=== PATIENT | female | born 1975 | race Caucasian/White ===

== ENCOUNTER 2020-10-15 07:30 | Emergency (ER) | payer BC, SELFPAY ==
--- NOTE | ~2020-10-15 | XR_ITS ---
EXAMINATION: XR chest 2V DATE: 10/15/2020 08:01 INDICATION: Chest pain TECHNIQUE: PA and lateral views of the chest are obtained. COMPARISON: None available FINDINGS: The lungs are free of acute opacities. There is no pleural effusion or pneumothorax. The ca rdiomediastinal silhouette is normal. The visualized bones and soft tissues are unremarkable. IMPRESSION: 1. No acute cardiopulmonary abnormality. Reviewed, dictated and finalized at location B.
--- NOTE | ~2020-10-15 | US_ITS ---
EXAMINATION: US right upper quadrant DATE: 10/15/2020 08:18 INDICATION: Epigastric abdominal pain TECHNIQUE: Multiple grayscale and Doppler ultrasound images of the abdomen were obtained. COMPARISON: None available FINDINGS: The head, body, and tail of the pancreas are normal. The liver is normal with normal echoge nicity and echotexture. No surface nodularity. Normal hepatopetal flow in the main portal vein. The g allbladder is normal with no abnormal wall thickening, pericholecystic fluid or stones. The normal co mmon bile duct measures 5 mm. There was no sonographic Marcus sign. IMPRESSION: 1. Normal sonographic study of the gallbladder. Reviewed, dictated and finalized at location B.
--- NOTE | ~2020-10-15 | CT_ITS ---
EXAMINATION: CT abdomen pelvis wo con DATE: 10/15/2020 09:25 INDICATION: Abdominal pain. Nausea. TECHNIQUE: Computed tomography (CT) of the abdomen and pelvis was performed without intravenous contr ast. Automated exposure control and iterative reconstruction technique were employed. The dose-length product was 185.65 mGy-cm. COMPARISON: Ultrasound abdomen 10/15/2020 FINDINGS: The visualized portions of the lung bases demonstrate a 3 mm nodule in right lower lobe, li panda benign. No pleural effusion. The heart size is normal. No pericardial effusion. The liver, gallb ladder, spleen, pancreas, adrenal glands, and kidneys are normal. There is no urolithiasis. There is a 7.5 cm mass posterior to the uterus. The appendix is not visualized. There are dilated loops of dis ana m small bowel. There is wall thickening of a dilated loop of small bowel, consistent with inflammat ion. There is edema of the intra-abdominal fat. There is a small volume of ascites. There is mild lum bar spondylosis. IMPRESSION: 1. Dilated loops of distal small bowel with bowel wall thickening, consistent with adynamic ileus tabatha aleksandra small bowel obstruction with inflammation. Consider CT with intravenous contrast. 2. 7.5 cm mass posterior to the uterus, which may be a uterine fibroid, but ovarian mass cannot be ex cluded. Pelvis ultrasound is recommended. Reviewed, dictated and finalized at location A. IMPRESSION: 1. Dilated loops of distal small bowel with bowel wall thickening, consistent w ith adynamic ileus versus small bowel obstruction with inflammation. Consider C T with intravenous contrast. 2. 7.5 cm mass posterior to the uterus, which may be a uterine fibroid, but ova dewayne mass cannot be excluded. Pelvis ultrasound is recommended.
[2020-10-15 07:37] VITALS: BP 116/82; PULSE 79; RESP 14; TEMP 37.7; O2SAT 100
--- NOTE | 2020-10-15 07:44 | ECG_ITS ---
Measurements Intervals [place] Rate: 82 P: 83 FL: 151 QRS: 62 QRSD: 89 T: 49 QT: 370 QTc: 434 Interpretive Statements SINUS RHYTHM WITH SINUS ARRHYTHMIA BORDERLINE ST ABNORMALITY- ANTEROLAT/INF LEADS BORDERLINE ECG Electronically Signed On 10-15-2020 8:41:07 CDT by Tony Esquivel D.O.
[2020-10-15 07:59] LABS: Basophils Percent Auto 0.3 % (0.2-1.2); Eosinophils Percent Auto 0.5 % (0-4.4); Hematocrit 39.6 % (37.0-47.0); Hemoglobin 13.3 g/dL (12.0-15.0); Immature Granulocyte Absolute 0.02 K/mm3 (0.00-0.031); Immature Granulocyte Percent A 0.3 % (0-0.5); Lymphocytes Absolute Auto 1.05 K/mm3 (0.9-3.2); Lymphocytes Percent Auto 17.7 % (18.3-44.2); Mean Corpuscular HGB Conc 33.6 g/dl (32-36); Mean Corpuscular Hemoglobin 30.5 pg (26-34); Mean Corpuscular Volume 90.8 fl (80-100); Mean Platelet Volume 9.3 fl (7.4-10.4); Monocytes Absolute Auto 0.5 K/mm3 (0.1-0.6); Monocytes Percent Auto 8.3 % (2.6-8.5); Neutrophils Absolute Auto 4.3 K/mm3 (1.3-6.7); Neutrophils Percent Auto 72.9 % (45.5-73.1); Platelet Count Result 241 k/mm3 (150-375); Red Blood Count 4.36 M/mm3 (4.2-5.4); Red Cell Distribution Width 12.4 % (11.5-14.5); White Blood Count 5.9 K/mm3 (4.5-10.0)
[2020-10-15 08:13] LABS: Alanine Aminotransferase 12 U/L (4-35); Albumin Level 4.5 g/dL (3.5-5.1); Alkaline Phosphatase 54 U/L (38-126); Anion Gap 9 mmol/L (8-16); Aspartate Amino Transferase 25 U/L (14-36); Bilirubin,Total 0.7 mg/dL (0.2-1.3); Blood Urea Nitrogen 11 mg/dL (7-17); Calcium 9.4 mg/dL (8.4-10.2); Carbon Dioxide 22 mmol/L (22-30); Chloride 106 mmol/L (98-107); Estimated CRCL calculation 55 ml/min; Estimated Glomerular Filt Rate > 60; Glucose 99 mg/dL (65-105); Lipase 58 U/L (23-300); Potassium 4.3 mmol/L (3.4-5.0); Sodium 137 mmol/L (137-145)
[2020-10-15] MEDS: MORPHINE SULFATE (*CRX) 4 MG/ML INJ IV PUSH (08:15)
[2020-10-15] MEDS: ONDANSETRON INJ 4 MG/2 ML VIAL IV PUSH (08:15)
[2020-10-15 08:24] LABS: Troponin I < 0.012 ng/mL (0.000-0.034)
[2020-10-15 08:49] LABS: Add Urine Microscopic? YES; Appearance Urine Cloudy (Clear); Bilirubin Urine Negative (Negative); Blood Urine 3+ (Negative); Color Urine Yellow (Yellow); Glucose Urine UA Negative (Negative); Ketones Urine 1+ mg/dL (Negative); Leukocyte Esterase Ur Negative LEU/UL (Negative); Mucus Urine Rare /lpf; Nitrate Urine Negative (Negative); Protein Urine 2+ mg/dL (Negative); RBC Urine >75 /hpf (0-2); Specific Grav Ur 1.019 (1.001-1.035); Squamous Epithelial Cell Urine Occasional /hpf (Few); Urobilinogen Urine Negative mg/dL (<2.0); WBC Urine 0-3 /hpf
[2020-10-15 09:01] VITALS: BP 110/76; PULSE 73; RESP 16; O2SAT 100
--- NOTE | 2020-10-15 10:49 | ED.GENADULT ---
HPI - General Adult General Chief complaint: Abdominal Pain Stated complaint: chest pain Time Seen by Provider: 10/15/20 07:34 History of Present Illness HPI narrative: Patient is a 45-year-old female who presents to the ER with abdominal discomfort. Located in the epigastrium. Also associated with nausea. No radiation. No fevers or chills or sweats. No diarrhea or vomiting. Has not had similar symptoms before. No association with eating or drinking. Patient reports she is on her menstrual cycle. She has complicated history of endometriosis and has had multiple surgeries for this. She continues to have bowel movements and pass gas. Patient also reports known endometrial mass on right ovary. Related Data Allergies Allergy/AdvReac Type Severity Reaction Status Date / Time No Known Allergies Allergy Verified 10/15/20 07:47 Review of Systems Review of Systems: All systems reviewed & are unremarkable except as noted in HPI and below Constitutional: Constitutional: Denies chills, Denies fever(s) and Denies weakness Cardiovascular: Cardiovascular: Denies chest pain and Denies radiating jaw, neck or arm pain Respiratory: Respiratory: Denies cough Gastrointestinal: Gastrointestinal: Reports abdominal pain, Reports bloating, Denies constipation, Denies diarrhea, Reports nausea and Denies vomiting Genitourinary: Genitourinary: Denies abnormal vaginal bleeding, Denies dysuria and Denies vaginal discharge Comments: Currently menstruating PMFSH Past Medical History Medical History (Updated 10/15/20 @ 10:56 by Mariano Agudelo MD) Endometriosis Surgical History Surgical History (Updated 10/15/20 @ 10:54 by Mariano Agudelo MD) H/O laparoscopy History of left oophorectomy Social History Social History (Updated 10/15/20 @ 10:51 by Mariano Agudelo MD) Smoking status: Never smoker Exam Narrative: Exam Narrative: GENERAL: Well-appearing, well-nourished, and in no acute distress. HEAD: Normocephalic, atraumatic. CHEST: Clear to auscultation. No respiratory distress. HEART: Regular rate and rhythm. Normal peripheral pulses. ABDOMEN: Soft, mild epigastric discomfort without guarding, nondistended, normal active bowel sounds. EXTREMITIES: Normal range of motion. No edema. SKIN: Warm, dry, no rash. NEURO: Alert and oriented x3. PSYCH: Normal mood and affect. Course Course Emergency Course: Patient informed of results. Feels improved with morphine and having no pain. Discussed CT images and discussed potentially reimaging her with contrast to evaluate for ileus versus obstruction. Patient reports that she does have a history of having endometriosis on her bowel that was scraped off. She has no previous history of bowel obstruction and has had normal passage of gas and stool. We discussed reimaging versus a more conservative approach. Patient has opted to be discharged home with clear liquid diet and bowel rest. The area of thickening on CT scan may represent endometriosis that is causing some ileus or partial obstruction. Patient reports she is midcycle. It is possible that this will improve with rest and is also possible if it is related to endometriosis that should improve quickly as well. We discussed return precautions and she is verbalized understanding. She is aware she may end up back here within the next 24 to 48 hours especially if she continues to have pain, cannot keep down food or water, or has any additional concerns. Patient also reports known mass on right ovary that she has been followed for that is related to her endometriosis. Vital Signs Vital signs: Vital Signs Temperature 99.9 F H 10/15/20 07:37 Pulse Rate 79 10/15/20 07:37 Respiratory Rate 14 10/15/20 07:37 Blood Pressure 116/82 10/15/20 07:37 Pulse Oximetry 100 10/15/20 07:37 Temperature 99.9 F H 10/15/20 07:37 Pulse Rate 73 10/15/20 09:01 Respiratory Rate 16 10/15/20 09:01 Blood Pressure 110/76 10/15
[2020-10-15 10:57] VITALS: BP 123/73; PULSE 63; RESP 16; O2SAT 100
[2020-10-15 11:30] VITALS: BP 122/70; PULSE 72; RESP 18; TEMP 36.8; O2SAT 100
== END 2020-10-15 11:30 | disposition home or self-care (01) ==
PROVIDERS: Emergency Provider Emergency Medicine; PCP Family Medicine
DX: R10.13 Epigastric pain (principal); R07.9 Chest pain, unspecified; R11.0 Nausea; N80.9 Endometriosis, unspecified
CPT/HCPCS: 36415; 71046; 74176; 76705; 80053; 81001; 81025; 83690; 84484; 85025; 93005; 96374; 96375; 99284; J2270; J2405

== ENCOUNTER 2022-04-02 01:58 | Day surgery (SDC) | payer BC, SELFPAY ==
[2022-03-24 10:42] VITALS: BMI 20.8
--- NOTE | 2022-04-01 20:20 | PM.HPGS ---
History of Present Illness History of Present Illness Consent: Risks, benefits, and alternatives have been discussed and questions answered. Patient agrees to proceed with procedure. Chief complaint: neoplasm screening Narrative: Chinyere Hardwick is a 47 year old female Referred for colon cancer screening. Review of Systems Review of Systems: All systems reviewed & are unremarkable except as noted in HPI and below PMFSH Past Medical History Medical History Endometriosis Surgical History Surgical History H/O laparoscopy History of left oophorectomy Social History Social History Smoking status: Never smoker Substance use type: does not use Living arrangements: with family Spiritual care concerns: No Meds Home Medications and Allergies Home Medications Medication Instructions Recorded Confirmed Type conjugated estrogens 1.25 mg 1.25 mg PO DAILY 03/24/22 03/24/22 History tablet (Premarin) trazodone 100 mg tablet 1,000 mg PO PRN PRN Sleep 03/24/22 03/24/22 History Allergies Allergy/AdvReac Type Severity Reaction Status Date / Time No Known Allergies Allergy Verified 04/02/22 08:10 Exam Const: General: alert Orientation/consciousness: patient oriented x3 Resp: Auscultation: clear to auscultation bilaterally Cardio: Rhythm: regular rhythm GI: GI Palp: Yes Soft to palpation and No Tenderness to palpation present (GI) Neuro: General: patient oriented x3 Assessment and Plan Assessment and plan (1) Colon cancer screening: Code(s): Z12.11 - Encounter for screening for malignant neoplasm of colon Status: Acute Assessment and Plan: Colonoscopy with possible biopsy or polypectomy or cautery or injection of substances.
[2022-04-02 08:11] VITALS: BP 128/98; PULSE 110; RESP 18; TEMP 36.3; O2SAT 100
[2022-04-02] MEDS: LACTATED RINGERS 1,000 ML 150 ML IV CONT (08:25)
--- NOTE | 2022-04-02 08:51 | P.PNAN_ITS ---
Anes - Initial Pre Proc Eval Procedure: Operation Date: 04/02/22 09:00 Proposed Procedures p Screening Colonoscopy - Jaya Witt MD Date/Time: 04/02/22 08:51 Surgeon: Jaya Witt MD Pre Op Diagnosis: neoplasm screening Patient Data Age: 47 Gender: F Height: 1.63 m Weight: 53.2 kg Last Vital Signs Temp 97.4 F L 04/02/22 08:11 Pulse 110 H 04/02/22 08:11 Resp 18 04/02/22 08:11 BP 128/98 H 04/02/22 08:11 Pulse Ox 100 04/02/22 08:11 O2 Del Method Room Air 04/02/22 08:11 Allergies Allergy/AdvReac Type Severity Reaction Status Date / Time No Known Allergies Allergy Verified 04/02/22 08:10 Home Medications Medication Instructions Recorded Confirmed Type conjugated estrogens 1.25 mg 1.25 mg PO DAILY 03/24/22 03/24/22 History tablet (Premarin) trazodone 100 mg tablet 1,000 mg PO PRN PRN Sleep 03/24/22 03/24/22 History Patient hx anesthesia problems: none Family hx anesthesia problems: none Results Review: All pre-operative results and documents have been reviewed as part of the pre- operative evaluation. [facility] Past Medical History Medical History Endometriosis Surgical History Surgical History H/O laparoscopy History of left oophorectomy Social History Social History Smoking status: Never smoker Substance use type: does not use Living arrangements: with family Spiritual care concerns: No Anes - Eval Final PreProcedure Day of Procedure 04/02/22 08:51 Patient weight: normal Heart: regular rate and rhythm Lungs: clear to auscultation Airway: Mallampati scale class II Neurological: alert and oriented Last oral intake: >/= 8 hours ASA classification: I Emergent: no Anesthetic plan: proceed Anesthesia type and monitoring: general GIVS and standard monitoring Results Review: All pre-operative results and documents have been reviewed as part of the pre- operative evaluation. Informed Consent: The patient's anesthetic plan and its attendant risks and benefits were discussed with the patient/family/POA. Questions were solicited and answers pro vided to the satisfaction of the patient/family/POA.
[2022-04-02 09:14] VITALS: BP 86/49; PULSE 87; RESP 20; O2SAT 100
[2022-04-02 09:24] VITALS: BP 115/72; PULSE 86; RESP 20; O2SAT 100
[2022-04-02 09:34] VITALS: BP 130/66; PULSE 70; RESP 20; O2SAT 100
== END 2022-04-02 09:49 | disposition home or self-care (01) ==
PROVIDERS: PCP Family Medicine; Visit Provider Internal Medicine Gastroenterology
PROC: 0DJD8ZZ Inspection of Lower Intestinal Tract, Via Natural or Artificial Opening Endoscopic (ICD-10-PCS; CPT 45378; principal; 2022-04-02 09:00)
DX: Z12.11 Encounter for screening for malignant neoplasm of colon (principal); D12.2 Benign neoplasm of ascending colon
CPT/HCPCS: 45380; 88305; J2704; J7120